=== PATIENT | female | born 1975 | race Caucasian/White ===

== ENCOUNTER 2025-01-05 11:18 | Day surgery (SDC) | payer OTHER ==
[~2025-01-05] VITALS: Ht 177.8 cm; Wt 107.0 kg
[~2025-01-05 11:18] MED LIST: Lactated Ringer's 1,000 ML IV ONE; propofoL 50 ML IV ONE
[2025-01-05] MEDS ORDERED: METFORMIN HCL500 M3 (11:56)
[2025-01-05] MEDS ORDERED: HYDCHL25 (11:56)
[2025-01-05] MEDS ORDERED: VITAMIN D3400 UNI1 (11:56)
[2025-01-05] MEDS ORDERED: LYLLANA (11:56)
[2025-01-05] MEDS ORDERED: ROSUVASTATIN CA20 MG (11:57)
[2025-01-05] MEDS ORDERED: PEPCID40 MG (11:57)
[2025-01-05] MEDS ORDERED: PANTOPRAZOLE SO40 M2 (11:57)
[2025-01-05] MEDS ORDERED: VALSARTAN160 MG (11:57)
[2025-01-05] MEDS ORDERED: Triamcinolone A15 GM (11:57)
[2025-01-05] MEDS ORDERED: SOLIFENACIN SUC10 MG (11:57)
[2025-01-05] MEDS ORDERED: Lactated Ringer's 1,000 ML IV ONE (12:29)
== END 2025-01-05 13:21 | disposition home or self-care (01) ==
LOC: ORSCSDS 11:18
PROVIDERS: Specialist
PROC: 0DB58ZX Excision of Esophagus, Via Natural or Artificial Opening Endoscopic, Diagnostic (ICD-10-PCS; principal; 2025-01-05 12:45)
PROC: 0D758ZZ Dilation of Esophagus, Via Natural or Artificial Opening Endoscopic (ICD-10-PCS; principal; 2025-01-05 12:45)
PROC: 0DB68ZX Excision of Stomach, Via Natural or Artificial Opening Endoscopic, Diagnostic (ICD-10-PCS; principal; 2025-01-05 12:45)
DX: K21.9 Gastro-esophageal reflux disease without esophagitis (principal); R13.10 Dysphagia, unspecified; K44.9 Diaphragmatic hernia without obstruction or gangrene; E78.5 Hyperlipidemia, unspecified; E11.9 Type 2 diabetes mellitus without complications; I10 Essential (primary) hypertension; Z87.891 Personal history of nicotine dependence; Z79.899 Other long term (current) drug therapy
CPT/HCPCS: 82947; 88305; 88312; 88342; C1769; J2704; J7120